=== PATIENT | male | born 1985 | race Caucasian/White ===

== ENCOUNTER 2017-09-13 11:29 | Day surgery (SDC) | payer BC ==
[~2017-09-13] VITALS: Ht 167.6 cm; Wt 75.0 kg
[~2017-09-13 11:29] MED LIST: ADVIL200 MG PO; EXCEDRIN MIGRA1 EAC3 PO; NEXIUM20 MG PO; PERCOCET 5/31 TABLET PO; XYLOCAINE VISC100 ML PO
[2017-09-13 11:58] VITALS: BP 133/89
[2017-09-13 12:39] LABS: MCV 86.4 FL (86-99)
[2017-09-13 16:50] VITALS: BP 129/78
[2017-09-13 17:45] VITALS: BP 122/76
== END 2017-09-13 17:58 | disposition home or self-care (01) ==
LOC: SDC 11:29
PROVIDERS: Otolaryngology
PROC: 0W33XZZ Control Bleeding in Oral Cavity and Throat, External Approach (ICD-10-PCS; principal; 2017-09-13)
DX: J95.830 Postprocedural hemorrhage of a respiratory system organ or structure following a respiratory system procedure (principal); K21.9 Gastro-esophageal reflux disease without esophagitis; Z79.82 Long term (current) use of aspirin
CPT/HCPCS: 85014; 85018; J0330; J1100; J1170; J2250; J2405; J3010